=== PATIENT | male | born 1970 | race Caucasian/White ===

== ENCOUNTER → 2017-03-10 | Outpatient (CLI) | payer OTHER ==
[~2017-03-10] MED LIST: CRESTOR20 MG PO; ERGOCALCIF50000 UNIT PO; HYDROCHLOROTH12.5 M3 PO; LISINOPRIL40 MG PO; TRICOR145 MG PO; VITAMIN D2000 INTUN PO
== END | disposition home or self-care (01) ==
LOC: CDC 12:15
DX: R94.31 Abnormal electrocardiogram [ECG] [EKG] (principal); M75.111 Incomplete rotator cuff tear or rupture of right shoulder, not specified as traumatic; M19.011 Primary osteoarthritis, right shoulder; S43.431D Superior glenoid labrum lesion of right shoulder, subsequent encounter
CPT/HCPCS: 93000